=== PATIENT | female | born 1990 | race African-American/Black ===

== ENCOUNTER 2025-01-16 06:42 | Observation (INO) | payer OTHER ==
[2025-01-16] MEDS ORDERED: ACETAMINOPHEN INJECTION 100 ML ONE (07:35)
[2025-01-16] MEDS ORDERED: ONDANSETRON 4 MG/2 ML VIAL ONE (07:35)
[2025-01-16] MEDS: ACETAMINOPHEN 1000 MG/100 ML BAG IVPB ONE (07:59)
[2025-01-16] MEDS: LACTATED RINGERS SOLUTION 1000 ML INFUS.BAG IV ONE ×2 (08:00→13:33)
[2025-01-16] MEDS: ONDANSETRON 4 MG/2 ML VIAL IVPUSH ONE (08:00)
[2025-01-16 08:31] LABS: ABSOLUTE IMMATURE GRANULOCYTES 0.03 x10^3/uL (0.0-0.031); BASOPHILS # 0.04 x10^3/uL (0.01-0.08); EOSINOPHIL % 0.3 % (0.7-5.8); EOSINOPHILS # 0.03 x10^3/uL (0.04-0.36); HEMATOCRIT 36.2 % (34.1-44.9); HEMOGLOBIN 11.7 g/dL (11.2-15.7); MCHC 32.3 g/dl (32.2-35.5); MEAN CELL VOLUME 85.8 fl (79.4-94.8); MONOCYTE # 0.41 x10^3/uL (0.24-0.86); MONOCYTE % 3.4 % (4.7-12.5); PLATELET COUNT 296 x10^3/uL (182-369); RDW 14.4 % (12.1-16.8)
[2025-01-16 08:43] LABS: EPI CELLS 5 /uL (0-25.1); HYALINE CASTS 0 /uL (0-3.1); PH,URINE 5.5 (5.0-8.0); URINE APPEARANCE CLEAR; URINE BACTERIA 44 /uL (0-1359); URINE BILIRUBIN NEGATIVE (NEGATIVE); URINE COLOR YELLOW; URINE GLUCOSE (UA) NEGATIVE (NEGATIVE); URINE KETONE NEGATIVE (NEGATIVE); URINE LEUK ESTERASE NEGATIVE (NEGATIVE); URINE NITRITE NEGATIVE (NEGATIVE); URINE PROTEIN NEGATIVE (NEGATIVE); URINE RBC 13 /uL (0-23.9); URINE UROBILINOGEN 0.2 mg/dL (0.2-1.0); URINE WBC 2 /uL (0-25.8)
[2025-01-16 09:00] LABS: POTASSIUM 4.2 mmol/L (3.5-5.1)
[2025-01-16 09:04] LABS: CALCIUM 10.1 mg/dL (8.5-10.1)
[2025-01-16 09:09] LABS: BILIRUBIN,TOTAL 0.6 mg/dL (0.2-1); TOT PROT 7.8 g/dl (6.4-8.2)
[2025-01-16] MEDS ORDERED: KETOROLAC TROMETHAMINE 15 MG/ML VIAL ONE (09:41)
[2025-01-16] MEDS: KETOROLAC TROMETHAMINE 15 MG/ML VIAL IVPUSH ONE (09:46)
[2025-01-16] MEDS ORDERED: PIPERACILLIN/TAZOB 4.5 GM 4.5 GM/100 ML BAG IVPB ONE (11:34)
[2025-01-16] MEDS: PIPERACILLIN/TAZOB 4.5 GM 4.5 GM in DEXTROSE 5%-WATER 100 ML IVPB ONE (11:42)
[2025-01-16 12:36] LABS: HEPATITIS B SURFACE AG MATERN NON-REACTIVE (NONREACTIVE)
[2025-01-16 13:04] LABS: HCV DIAGNOSTIC IN-HOUSE W/RFLX NON-REACTIVE (NONREACTIVE)
[2025-01-16] MEDS ORDERED: ONDANSETRON 4 MG/2 ML VIAL IVPUSH PRN (13:36)
[2025-01-16] MEDS ORDERED: KETOROLAC TROMETHAMINE 15 MG/ML VIAL IVPUSH PRN (13:37)
[2025-01-16 14:28] LABS: MAGNESIUM 1.9 mg/dL (1.8-2.4)
[2025-01-16 14:38] VITALS: BMI 34.0
[2025-01-16] MEDS ORDERED: PIPERACILLIN/TAZOB 4.5 GM 4.5 GM/100 ML BAG IVPB SCH (15:00)
[2025-01-16] MEDS: ACETAMINOPHEN 1000 MG/100 ML BAG IVPB PRN (15:06)
[2025-01-16] MEDS: LACTATED RINGERS SOLUTION 1,000 ML/1,000 ML INFUS.BAG IV SCH (15:07)
[2025-01-16] MEDS: PIPERACILLIN/TAZOB 4.5 GM 4.5 GM/100 ML BAG IVPB SCH (18:36)
[2025-01-16] MEDS: PIPERACILLIN/TAZOB 4.5 GM 4.5 GM in DEXTROSE 5%-WATER 100 ML IVPB SCH ×2 (22:32→22:37)
[2025-01-17] MEDS: PIPERACILLIN/TAZOB 4.5 GM 4.5 GM/100 ML BAG IVPB SCH (02:42)
[2025-01-17 06:47] VITALS: RESP 18
[2025-01-17 08:03] LABS: HEMATOCRIT 30.4 % (34.1-44.9); HEMOGLOBIN 9.6 g/dL (11.2-15.7); MCHC 31.6 g/dl (32.2-35.5); MEAN CELL VOLUME 85.4 fl (79.4-94.8); MEAN PLT VOLUME 10.1 fl (9.4-12.3); PLATELET COUNT 275 x10^3/uL (182-369); RDW 14.4 % (12.1-16.8)
[2025-01-17 08:14] LABS: POTASSIUM 4.2 mmol/L (3.5-5.1)
[2025-01-17 08:16] LABS: CALCIUM 9.3 mg/dL (8.5-10.1)
[2025-01-17 08:17] LABS: ALBUMIN 3.4 g/dl (3.4-5.0); BLOOD UREA NITROGEN 8.8 mg/dL (7-18); MAGNESIUM 2.1 mg/dL (1.8-2.4)
[2025-01-17 08:20] LABS: BILIRUBIN,DIRECT 0.3 mg/dL (0.0-0.2); CREATININE 1.1 mg/dL (0.55-1.3); PHOSPHOROUS 3.9 mg/dL (2.5-4.9)
[2025-01-17 08:21] LABS: BILIRUBIN,TOTAL 0.7 mg/dL (0.2-1)
[2025-01-17 08:22] LABS: TOT PROT 6.6 g/dl (6.4-8.2)
[2025-01-17] MEDS: SODIUM CHLORIDE 1,000 ML IV SCH (12:00)
[2025-01-17] MEDS: ESCITALOPRAM OXALATE 10 MG TABLET PO SCH (12:30)
[2025-01-17 14:13] VITALS: BP 107/66; PULSE 72; TEMP 98.1
[2025-01-17 14:19] LABS: HEPATITIS B SURF AG NON-MATERN NON-REACTIVE (NONREACTIVE)
[2025-01-17 14:48] LABS: HCV DIAGNOSTIC IN-HOUSE W/RFLX NON-REACTIVE (NONREACTIVE)
[2025-01-17] MEDS ORDERED: PIPERACILLIN/TAZOB 3.375 GM 3.375 GM in DEXTROSE 5%-WATER - 50 ML IVPB SCH (18:00)
== END 2025-01-17 15:44 | disposition home or self-care (01) ==
LOC: JER 06:42 → JERBED 11:21 → J8W 14:19
PROVIDERS: ADMIT Student in an Organized Health Care Education/Training Program; ATTEND Nurse Practitioner Family
PROC: 3E033NZ Introduction of Analgesics, Hypnotics, Sedatives into Peripheral Vein, Percutaneous Approach (ICD-10-PCS; principal; 2025-01-16)
PROC: 3E0333Z Introduction of Anti-inflammatory into Peripheral Vein, Percutaneous Approach (ICD-10-PCS; 2025-01-16)
PROC: 3E0337Z Introduction of Electrolytic and Water Balance Substance into Peripheral Vein, Percutaneous Approach (ICD-10-PCS; 2025-01-16)
PROC: 3E033GC Introduction of Other Therapeutic Substance into Peripheral Vein, Percutaneous Approach (ICD-10-PCS; 2025-01-16)
PROC: 3E03329 Introduction of Other Anti-infective into Peripheral Vein, Percutaneous Approach (ICD-10-PCS; 2025-01-16)
DX: K80.50 Calculus of bile duct without cholangitis or cholecystitis without obstruction (principal); K76.0 Fatty (change of) liver, not elsewhere classified; R94.5 Abnormal results of liver function studies; R10.11 Right upper quadrant pain; D64.9 Anemia, unspecified
CPT/HCPCS: 0241U-QW; 36415; 74181-TC; 76705-TC; 80053; 81003; 82248; 82390; 82728; 83516; 83540; 83550; 83690; 83735; 84100; 84703; 85025; 85027; 86038; 86140; 86704; 86705; 86707; 86708; 86709; 86803; 87040; 87086; 87340; 87350; 87517; 93005; 93010; 99285-25; G0378